=== PATIENT | female | born 1985 | race Caucasian/White ===

== ENCOUNTER 2023-02-04 11:30 | Day surgery (SDC) | payer OTHER ==
[2023-01-31 09:23] VITALS: BMI 25.0
[2023-02-04 10:58] LABS: POTASSIUM 4.3 mmol/L (3.5-5.1)
[2023-02-04 11:00] LABS: BLOOD UREA NITROGEN 10.7 mg/dL (7-18)
[2023-02-04 11:03] LABS: CREATININE 0.8 mg/dL (0.55-1.3)
[2023-02-04] MEDS ORDERED: ACETAMINOPHEN INJECTION 100 ML IVPB ONE (12:53)
[2023-02-04] MEDS ORDERED: MIDAZOLAM HCL 2 MG/2 ML SINGLE DOSE VIAL ONE ×2 (12:54→13:04)
[2023-02-04] MEDS ORDERED: ceFAZolin SODIUM 1 GM VIAL IVPB ONE (13:00)
[2023-02-04] MEDS ORDERED: SODIUM CHLORIDE 0.9% P/F 10 ML VIAL IJ ONE (13:13)
[2023-02-04] MEDS ORDERED: ceFAZolin SODIUM 1 GM VIAL ONE (13:13)
[2023-02-04] MEDS ORDERED: PROPOFOL 20 ML ONE (13:15)
[2023-02-04] MEDS ORDERED: LIDOCAINE HCL 1%, 10 MG/ML (20ML VIAL) NR ONE ×2 (13:17→13:18)
[2023-02-04] MEDS ORDERED: BUPIVACAINE HCL/PF 0.5% (5MG/ML) 10 ML VIAL IJ ONE ×2 (13:18)
[2023-02-04] MEDS ORDERED: ePHEDrine SULFATE 50 MG/1 ML AMPULE ONE (13:28)
[2023-02-04] MEDS ORDERED: oxyCODONE HCL 5 MG TABLET PO PRN (13:46)
[2023-02-04] MEDS ORDERED: LACTATED RINGERS SOLUTION 1,000 ML IV SCH (14:00)
[2023-02-04 15:40] VITALS: RESP 18
[2023-02-04] MEDS ORDERED: oxyCODONE HCL 5 MG TABLET ONE (15:59)
[2023-02-04] MEDS ORDERED: oxyCODONE HCL 5 MG TABLET PO ONE (16:00)
[2023-02-04 17:07] VITALS: BP 110/75; PULSE 63; TEMP 97.8
== END 2023-02-04 17:00 | disposition home or self-care (01) ==
LOC: JASU-SURG 11:30
PROVIDERS: ATTEND Surgery
PROC: 08BX0ZZ Excision of Right Lacrimal Duct, Open Approach (ICD-10-PCS; principal; 2023-02-04 11:00)
DX: N64.52 Nipple discharge (principal)
CPT/HCPCS: 36415; 80048; 81025; 94760